=== PATIENT | female | born 1960 | race African-American/Black ===

== ENCOUNTER → 2018-12-03 | Outpatient (CLI) | payer OTHER ==
--- NOTE | 2018-12-03 15:43 | RAD ---
2 views lumbar spine without comparison for low back pain. FINDINGS: There is straightening of the normal lumbar lordosis, with degenerative disc disease at all levels. Vacuum phenomenon is present at all levels. Anterior and smaller posterior osteophytes are present at most levels. Exuberant facet arthrosis is present in the lower lumbar levels, and there may be neural foraminal narrowing particularly at L5-S1. Numerous phleboliths are present throughout the abdomen. There is a bulky calcification in the right paraspinal soft tissues at the level of L4-5 of uncertain significance. A large marginal osteophyte is seen from L2-3 on the right, with additional marginal osteophytes seen throughout the lower thoracic levels. Bilateral hip prostheses are present. IMPRESSION: 1. No fracture or acute osseous abnormality. 2. Extensive multilevel degenerative changes as described. There is bulky facet arthrosis posteriorly at the lower lumbar levels which may produce neural foraminal narrowing. If there is clinical concern for nerve impingement, further evaluation with MRI should be considered. Electronically signed by: Andres Sylvester MD (12/03/2018 3:40 PM) [facility]
--- NOTE | 2018-12-03 15:44 | RAD ---
Single AP view the pelvis without comparison for pelvic pain. FINDINGS: Bilateral hip prostheses are present. Numerous phleboliths are seen. Degenerative changes of lumbar spine are noted. No suspicious osteoblastic or osteolytic bone lesions are seen. No fracture or acute osseous abnormality is evident. There are surgical tylor in the pelvis. IMPRESSION: 1. No acute osseous abnormality of the pelvis. Electronically signed by: Andres Sylvester MD (12/03/2018 3:41 PM) [facility]
== END | disposition home or self-care (01) ==
LOC: DXRAD 09:48
DX: M47.816 Spondylosis without myelopathy or radiculopathy, lumbar region (principal); M48.061 Spinal stenosis, lumbar region without neurogenic claudication; M51.36 Other intervertebral disc degeneration, lumbar region; M25.78 Osteophyte, vertebrae; I87.8 Other specified disorders of veins
CPT/HCPCS: 72100; 72170

== ENCOUNTER → 2019-09-09 | Outpatient (CLI) | payer BC ==
[~2019-09-09] MED LIST: EMPA25TA PO; LEVO100T PO; LISI-334 PO; METF-658 PO; SAXA5TAB PO
== END | disposition home or self-care (01) ==
LOC: LAB 11:55
PROVIDERS: ATTEND Nurse Anesthetist, Certified Registered
DX: Z11.59 Encounter for screening for other viral diseases (principal)
CPT/HCPCS: U0003-CS

== ENCOUNTER → 2019-09-11 | Day surgery (SDC) | payer BC ==
[~2019-09-11] MED LIST changes: +ACETAMINOPHEN 325 MG TABLET PO PRN; +ALBUTEROL SULFATE 2.5 MG/3 ML NEBU. NEB PRN; +ATROPINE 0.5 MG/5 ML DISP.SYRIN. IV PRN; +IV RINGERS SOLUTION,LACTATED 1,000 ML IV SCH; +ONDANSETRON PF 4 MG/2 ML VIAL. IV PRN; +PROPOFOL 10,000 MCG/ML (20ML) VIAL IV ONE; +diphenhydrAMINE 50 MG/ML VIAL IV PRN
[2019-09-11 13:12] VITALS: BP 116/67
== END | disposition home or self-care (01) ==
LOC: SURG 10:12
PROVIDERS: ATTEND Internal Medicine Gastroenterology
DX: Z12.11 Encounter for screening for malignant neoplasm of colon (principal); K64.0 First degree hemorrhoids; K57.30 Diverticulosis of large intestine without perforation or abscess without bleeding; K63.89 Other specified diseases of intestine; E11.9 Type 2 diabetes mellitus without complications; I10 Essential (primary) hypertension; Z79.899 Other long term (current) drug therapy; Z98.890 Other specified postprocedural states; Z88.1 Allergy status to other antibiotic agents; Z79.84 Long term (current) use of oral hypoglycemic drugs; Z80.0 Family history of malignant neoplasm of digestive organs
CPT/HCPCS: 45378; J2704; J7120